=== PATIENT | female | born 1965 | race Caucasian/White ===

== ENCOUNTER 2023-02-05 11:06 | Emergency (ER) | payer MEDICAID ==
[~2023-02-05] VITALS: Ht 172.7 cm; Wt 63.6 kg
[~2023-02-05 11:06] MED LIST: LACO100T2 PO; PHEN-588 PO
[2023-02-05 11:28] VITALS: BP 118/72
--- NOTE | 2023-02-05 12:27 | NUR ---
PT BIB AMBULANCE. REQUESTING MEDICATIONS LACOSAMIDE AND PHENOBARBITAL. REPORT FROM [facility] PT IS A [facility] PT, [facility] STAFF [facility] PT IS ACTING NORMAL. RX BOTTLES HAVE ACTIVE REFILLS UNTIL 03/19/23. PROVIDER AT BEDISE AND AWARE.
--- NOTE | 2023-02-05 12:36 | NUR ---
PT NOT A RELIABLE HISTORIAN AND NOT ABLE TO STATE ALLERY INFO. PT STATES ITS SOMETHING RED AND I CANT REMEMBER. Addendum: 02/05/23 at 1250 by TORSTEN ALLERGY*
[2023-02-05] MEDS ORDERED: PHEN64.8 PO (14:38)
[2023-02-05] MEDS ORDERED: PHEN97.22 PO (14:38)
[2023-02-05] MEDS ORDERED: LACO150T4 PO (14:38)
--- NOTE | 2023-02-05 15:06 | NUR ---
ILS WORKER AT BEDSIDE. SS CONSULT IN PROGRESS.
== END 2023-02-05 15:14 | disposition home or self-care (01) ==
LOC: ER 11:06
DX: R56.9 Unspecified convulsions (principal); F03.90 Unspecified dementia, unspecified severity, without behavioral disturbance, psychotic disturbance, mood disturbance, and anxiety; Z76.0 Encounter for issue of repeat prescription; Z79.899 Other long term (current) drug therapy
CPT/HCPCS: 99283

== ENCOUNTER 2023-09-25 12:06 | Outpatient (CLI) | payer MEDICAID ==
[~2023-09-25 12:06] MED LIST changes: +LACO150T4 PO; +PHEN64.8 PO; +PHEN97.22 PO
== END 2023-09-25 23:59 | disposition home or self-care (01) ==
LOC: RAD 12:06
PROVIDERS: ATTEND Nurse Practitioner Family
DX: R94.01 Abnormal electroencephalogram [EEG] (principal); G40.109 Localization-related (focal) (partial) symptomatic epilepsy and epileptic syndromes with simple partial seizures, not intractable, without status epilepticus
CPT/HCPCS: 95819